=== PATIENT | female | born 2000 | race Caucasian/White ===

== ENCOUNTER 2024-02-14 16:39 | Observation (INO) ==
--- NOTE | 2024-02-14 16:53 | Emergency Department Note ---
Impression & Plan Elevated LFTs, Nausea & vomiting, Abdominal pain ED Provider Note CHIEF COMPLAINT: Hepatitis HISTORY OF PRESENTING ILLNESS: This 23-year-old female patient presents to the emergency department for evaluation of hepatitis. The patient states that she was seen at [facility] urgent care yesterday and was diagnosed with jaundice. She had blood work done yesterday and was called back today saying that she had acute hepatitis and to come to the ER. The patient states that she has been having yellowing of her eyes, abdominal pain, vomiting, sore throat, and nausea for the past week. However, those symptoms have started to improve. She did not have any fevers. Currently she is having fatigue and mild GI upset. No previous history of mono. No longer having a sore throat and she is able to swallow without pain. Has only been able to eat and drink since last night b/c of the abdominal pain. Has been having more frequent urination recently as well. She had some decreased BMs when she wasn't able to eat and drink, but now her bowels are moving better. Stools were more pale in color, but no white per patient. Denies chest pain or SOB. She has been having a lot of heartburn recently. She took Tums with improvement of her symptoms. Denies hematochezia, melena, hematuria, hemoptysis, or hematemesis. She has been having intermittent episodes of abdominal pain, nausea, and vomiting over the past year. She has not had and EGD, Colonoscopy, or CT scans done for her symptoms. Denies abdominal surgeries. Childhood immunizations are up to date. She was in [place] in Mar 2023 shortly before the symptoms started. No other travel history. She has not been taking Tylenol recently. Denies excessive alcohol use. Denies any recent antibiotics. No new medications or OTC supplements per patient. Upon review of the patient's medical record, she was seen by [facility] yesterday and outpatient labs were ordered. Her CBC and urinalysis were normal. However, her total bilirubin was 2.1, AST 74, ALT 374, and alk phos 124. REVIEW OF SYSTEMS: See HPI for pertinent positives and pertinent negatives. ALLERGIES: NKDA MEDICATIONS: Mirena PAST MEDICAL HISTORY: Denies pertinent past medical or pertinent past surgical history PHYSICAL EXAM: VITALS: Vitals are noted on the nurse's note and reviewed by myself. GENERAL: Non toxic, no acute distress, non-diaphoretic. SKIN: No jaundice noted to the skin. No abnormal rashes or skin lesions noted. Capillary refill <2 sec. EYES: PERRLA. EOMI. Conjunctivae without injection. Sclerae without icterus. NOSE: Patent without discharge. MOUTH: Mucous membranes moist. Uvula midline. Airway patent. No palatal jaundice. Pharynx without erythema, edema, or exudate. NECK: Supple without nuchal rigidity. No lymphadenopathy noted. HEART: Regular rate and rhythm without murmurs gallops or rubs. LUNGS: Clear to auscultation bilaterally without wheezes, rales or rhonchi. No retractions or accessory muscle use. ABDOMEN: Positive bowel sounds x 4. Normal tympanic percussion. Soft, minimal upper abdominal tenderness, but no focal RUQ tenderness. No obvious masses or organomegaly. Wynn sign negative. No guarding or rebound tenderness. No focal RLQ or LLQ tenderness. MUSCULOSKELETAL: No gross musculoskeletal defects. NEURO: Patient was alert and oriented. No focal neurological deficits. DIFFERENTIAL DIAGNOSIS: Differential diagnosis includes hepatitis, pancreatitis, cholecystitis, cholelithiasis, appendicitis, kidney stone, pyelonephritis, UTI, gastritis, gastroenteritis, mesenteric adenitis, obstruction, constipation, hernia, abdominal abscess, perforation, diverticulitis, IBD, ischemic colitis, abdominal aortic aneurysm, , ectopic , ovarian cyst, ovarian torsion, acute salpingitis, or others. ED COURSE AND MEDICAL DECISION MAKING: MEDICATIONS GIVEN: The patient declined any medication for her symptoms while in the ER. There is currently a severe shortage of IV fluids. The patient's condition was assessed and did not meet hospital criteria for IV fluid administration at this time. Therefore, IV fluids were not given. INTERPRETATION OF LABS: I interpreted the labs with full lab results as below in the lab section of this note. Pertinent lab results discussed in the MDM section below. INTERPRETATION OF IMAGING: Imaging studies were interpreted by myself and read by radiology as per the imaging section of this note. CT scan of the abdomen pelvis with IV contrast showed multiple stones in the gallbladder, but no ductal dilation, evidence for choledocholithiasis, or evidence for cholecystitis. No other acute abnormalities. IUD is in good position. EXTERNAL RECORDS REVIEWED: I reviewed the urgent care office visit note as well as the outpatient laboratory studies obtained yesterday. CONSULTATIONS: Dr. Huggins of GI. On-call hospitalist. [facility] SUMMARY: I examined the patient. The patient has been having abdominal pain, nausea, vomiting, sore throat, and yellowing of her eyes for the past week. However, her symptoms started to improve last evening. The patient was seen at [facility] yesterday and had outpatient labs done that showed elevated LFTs. She was referred to the ER for further evaluation. In addition to the URI symptoms, the patient was in [place] in March 2023. No previous history of jaundice. She has been having intermittent episodes of abdominal pain, nausea, vomiting, and acid reflux over the past year. She has not had workup for the symptoms yet. An IV lock was placed and labs were drawn. The patient declined any medication for her symptoms while in the emergency department and due to a severe shortage of IV fluids, IV fluids were held as above. CBC was normal with a white blood cell count of 5.56, hemoglobin 14.7, and platelet count 273. INR was normal at 1.0. Total bilirubin decreased from 2.1 yesterday to 1.8 today with a direct bilirubin of 0.4. Since this is mostly an indirect elevation of bilirubin, it is likely secondary to Gilbert's. However, the patient's AST increased from 74 yesterday to 239 today. ALT increased from 374 yesterday to 569 today. Alk phos stable at 123 today compared to 124 yesterday. CMP otherwise normal. Lipase normal. Serum hCG negative. Urinalysis with trace blood, 1+ leukocyte Estrace, 3-5 red blood cells, 3-5 epithelial cells, and 1+ bacteria. Lyme disease screen negative. Anaplasma and Babesia smear negative with DNA PCR still pending. Monoscreen negative. EBV and CMV titers are still pending. Acute hepatitis panel still pending. CT scan of the abdomen pelvis with IV contrast showed multiple stones in the gallbladder, but no ductal dilation, evidence for choledocholithiasis, or evidence for cholecystitis. No other acute abnormalities. IUD is in good position. The patient is afebrile, has no leukocytosis, and has no right upper quadrant tenderness on exam. Therefore, right upper quadrant ultrasound was deferred in the ER at this time. I spoke with Dr. Huggins of GI due to the significant jump in her LFTs from yesterday without obvious cause. He stated that if the patient had significant vomiting/signs of dehydration, or an abnormal INR, more emergent treatment were needed. Otherwise, the patient would need to have close monitoring of her LFTs and her symptoms. I had a meaningful discussion about this patient with Dr. Ross who agrees with my assessment and the treatment plan. The patient does not have a family doctor and would have difficulty having close outpatient follow-up and monitoring of her LFTs. Therefore, it was felt the patient would benefit from inpatient admission for further monitoring and treatment of her symptoms. I spoke with the on-call hospitalist who agreed to admit the patient for further evaluation and treatment. Please refer to their dictation for further details. The patient denied any [id number] medications or supplements upon my questioning, but after speaking with the hospitalist, she remembered she had been taking Ashwaganda supplements. This could be a cause of her elevated LFTs. Urine drug screen, acetaminophen level, and alcohol level obtained by the hospitalist were negative. Still waiting on the results of the EBV and CMV titers as well as the acute hepatitis panel. The patient's care was transferred to the hospitalist service in stable condition. DIAGNOSIS: Elevated LFTs Recent nausea, vomiting, sore throat, and abdominal pain Past Med/Surg History Problem List (Updated 02/14/24 @ 22:34 by Maida Willard PA-C) Abdominal pain (Acute) Nausea & vomiting (Acute) Elevated LFTs (Acute) Medical History (Updated 02/14/24 @ 22:34 by Maida Willard PA-C) Vitamin D deficiency Social History Smoking Status: Never smoker Do You Dip or Chew Tobacco: No; Hx Alcohol Use: Yes Alcohol type: hard liquor Hx Substance Use: No Preferred Language: Telugu Communication Ability: Effective Death Claim Examiner Required: No Beliefs That Will Affect Care: None Current Living Situation: Other Current Living Situation Comment: apartment with three other roommates Feels Safe at Home: Yes Safety Concerns: Feels Safe At This Time Assistive Devices: None Allergies Allergies Allergy/AdvReac Type Severity Reaction Status Date / Time No Known Allergies Allergy Verified 02/13/24 14:21 Home Meds Home Medications Medication Instructions Recorded Confirmed levonorgestrel 21 mcg/24 hr (up to intrauterine 02/13/24 02/13/24 8 years) 52 mg intrauterine device (Mirena) Results & Data (ED) Vital Signs Vital Signs - 24 hr 02/14/24 16:41 02/14/24 17:32 02/14/24 17:33 Temperature 36.9 C Temperature Source Temporal Artery Scan Pulse Rate 115 H 88 103 H Pulse Rate from SpO2 Sensor 101 H Respiratory Rate 18 20 Respiratory Effort / Characteristics Non-Labored Respiratory Depth Normal Blood Pressure 127/85 117/88 Blood Pressure Mean 99 97 Pulse Oximetry 98 98 Oxygen Delivery Method Room Air Room Air Sepsis Recent Fever Within 48 Hours No Sepsis New/Unexplained Change in Mental Status No Sepsis Action Taken by Nursing No Action Required 02/14/24 18:48 02/14/24 19:03 02/14/24 19:33 Temperature Temperature Source Pulse Rate 96 H 94 H 87 Pulse Rate from SpO2 Sensor 96 H 93 H 88 Respiratory Rate 16 14 16 Respiratory Effort / Characteristics Respiratory Depth Blood Pressure 106/84 117/84 106/74 Blood Pressure Mean 91 95 84 Pulse Oximetry 98 98 98 Oxygen Delivery Method Room Air Room Air Room Air Sepsis Recent Fever Within 48 Hours Sepsis New/Unexplained Change in Mental Status Sepsis Action Taken by Nursing Laboratory Data 02/14/24 16:59 02/14/24 16:59 Lab Results 02/14/24 02/14/24 Range/Units 16:55 16:59 WBC 5.56 (4.8-10.8) K/ul RBC 4.69 (4.20-5.40) M/uL Hgb 14.7 (12.0-16.0) g/dl Hct 43.8 (37.0-47.0) % MCV 93.4 (80.0-100.0) fL MCH 31.3 (25.0-34.0) pg MCHC 33.6 (32.0-36.0) g/dL RDW Std Deviation 42.5 (36.4-46.3) fL RDW Coeff of Albina 12.3 (11.5-14.5) % Plt Count 273 (130-400) K/uL MPV 9.9 (9.4-12.4) fL Immature Gran % (Auto) 0.4 % Neut % (Auto) 62.1 % Lymph % (Auto) 29.7 % [place] % (Auto) 5.6 % Eos % (Auto) 1.8 % Baso % (Auto) 0.4 % Neut # (Auto) 3.46 (1.40-6.50) K/uL Lymph # (Auto) 1.65 (1.20-3.40) K/uL [place] # (Auto) 0.31 (0.11-0.59) K/uL Eos # (Auto) 0.10 (0.00-0.50) K/uL Baso # (Auto) 0.02 (0.00-0.20) K/uL Immature Gran # (Auto) 0.02 (0.01-0.20) K/uL PT 10.5 (9.0-12.0) Seconds INR 1.0 (0.9-1.1) Sodium 139 (136-145) mmol/L Potassium 4.1 (3.5-5.1) mmol/L Chloride 104 (98-107) mmol/L Carbon Dioxide 29 (21-32) mmol/L Anion Gap 6 (3-11) BUN 14 (6-23) mg/dl Creatinine 0.62 (0.6-1.2) mg/dl Est Cr Clr Drug Dosing 127.0 ml/min eGFR 128.25 BUN/Creatinine Ratio 22.6 H (10-20) Glucose 93 (70-99(Fasting)) mg/dl Calcium 9.9 (8.6-10.3) mg/dl Total Bilirubin 1.8 H (0.2-1.0) mg/dl Direct Bilirubin 0.4 H (0-0.2) mg/dl AST 239 H (13-39) U/L ALT 569 H (7-52) U/L Alkaline Phosphatase 123 H (34-104) U/L Total Protein 8.6 H (6.0-8.3) gm/dl Albumin 5.0 (3.4-5.0) gm/dl Globulin 3.6 (2.5-4.0) gm/dl Albumin/Globulin Ratio 1.4 (0.9-2) Lipase 53 (11-82) U/L HCG, Qual Negative (Negative) Urine Color Yellow Urine Appearance Clear (Clear) Urine pH 7.0 (4.5-7.5) Ur Specific [place] 1.021 (1.000-1.030) Urine Protein Negative (Negative) Urine Glucose (UA) Negative (Negative) Urine Ketones Negative (Negative) Urine Blood Trace H (Negative) Urine Nitrite Negative (Negative) Urine Bilirubin Negative (Negative) Urine Urobilinogen Negative (Negative) Ur Leukocyte Esterase 1+ H (Negative) Urine WBC (Auto) 0-5 (0-5) /hpf Urine RBC (Auto) 3-5 H (0-2) /hpf U Hyaline Cast (Auto) 0-2 (0-2) /lpf U Epithel Cells (Auto) 3-5 H (0-2) /hpf Urine Bacteria (Auto) 1+ H (None Seen) Urine Opiates Screen Neg (Neg) Ur Methadone, Qual Neg (Neg) Urine Fentanyl Screen Neg (Neg) Urine Barbiturates Neg (Neg) Ur Phencyclidine (PCP) Neg (Neg) U Amphetamin/Meth Scrn Neg (Neg) MDMA (Ecstasy) Screen Neg (Neg) U Benzodiazepines Scrn Neg (Neg) Ur Cocaine Metabolite Neg (Neg) U Marijuana (THC) Screen Neg (Neg) Anaplasma Smear See Comment Babesia Smear See Comment Lyme Disease Screen Negative (Negative) Monoscreen Negative (Negative) Administered Medications Lactated Ringer's (Lr) 1,000 mls @ 80 mls/hr IV .[id number] SELINA Stop: 02/15/24 09:38 Last Admin: 02/14/24 21:51 Dose: 80 mls/hr Documented By: MJM Discontinued Medications Ioversol (Optiray 320 100ml) 94 ml IV ONCE ONE Stop: 02/14/24 17:50 Last Admin: 02/14/24 17:50 Dose: 94 ml Documented By: EDK Imaging Data Radiologist's Impression: Abdomen/Pelvis CT 02/14/24 17:07 EXAM: CT Abdomen and Pelvis With Intravenous Contrast INDICATION: Abdominal pain. Jaundice. Elevated liver functions. TECHNIQUE: Axial computed tomography images of the abdomen and pelvis with intravenous contrast. Sagittal and coronal reformatted images were created and reviewed. This CT exam was performed using one or more of the following dose reduction techniques: automated exposure control, adjustment of the mA and/or kV according to patient size, and/or use of iterative reconstruction technique. CONTRAST: 94ml of Optiray 320 was administered intravenously. COMPARISON: No relevant prior studies available. FINDINGS: Limitations: None. Lung bases: No abnormality noted. Pleural space: No visualized pleural effusion or pneumothorax. Heart: No abnormality noted. Mediastinum: No abnormality noted. ABDOMEN: Liver: No abnormality noted. Gallbladder and bile ducts: The gallbladder is collapsed and contains multiple stones. No biliary gas. No ductal dilatation or visible stone. Pancreas: Homogeneous enhancement. No mass, inflammation or ductal dilation. Spleen: No significant abnormality noted. Adrenals: No significant abnormality noted. Kidneys and ureters: Normal enhancement. No mass, hydronephrosis or visualized stone. Stomach and bowel: No distension or mucosal thickening. No inflammation noted. PELVIS: Appendix: Well seen and appears normal. Bladder: No filling defects to suggest mass or large stone. No inflammation. Reproductive: No abnormalities noted. ABDOMEN and PELVIS: Intraperitoneal space: No free air. No significant fluid collection. Bones/joints: No acute changes. Soft tissues: No significant abnormality noted. Vasculature: No abdominal aortic aneurysm. Lymph nodes: No pathologically enlarged lymph nodes. Tubes, lines and devices: Intrauterine contraceptive device in good position. IMPRESSION: Cholelithiasis. No ductal dilatation. ACT 112: Positive. There are findings on this exam that require communication between the performing entity and the patient following Patient Test Result Information Act ([place] ACT 112) guidelines. Electronically signed by Dilma Rincon 02-14-2024 6:24 PM Discharge Plan Visit Data Chief Complaint: Referred by Doctor Stated Complaint: HEPITITIS AND NEEDS TO BE SEEN BY ER ED Provider: Aldo Ross ED Midlevel Provider: Maida Willard Discharge Problem: Elevated LFTs, Nausea & vomiting, Abdominal pain Patient Disposition: Admitted As Inpatient Condition: Good Discharge Instructions Interventions: ED Discharge Assessment Last Done: 02/14/24 20:38 Discharge Problem: Nausea & vomiting Qualifiers: Vomiting type: unspecified Qualified Code(s): R11.2 - Nausea with vomiting, unspecified Abdominal pain Qualifiers: Abdominal location: generalized Qualified Code(s): R10.84 - Generalized abdominal pain
[2024-02-14 17:22] LABS: Appearance Urine Clear (Clear); Bacteria Urine Automated 1+ (None Seen); Bilirubin Urine Negative (Negative); Blood Urine Trace (Negative); Cast Urine Automated 0-2 /lpf (0-2); Color Urine Yellow; Glucose Urine UA Negative (Negative); Ketones Urine Negative (Negative); Leukocyte Esterase Urine 1+ (Negative); Nitrite Urine Negative (Negative); Protein Urine Negative (Negative); Specific Gravity Urine 1.021 (1.000-1.030); Urobilinogen Urine Negative (Negative); WBC Urine Automated 0-5 /hpf (0-5)
[2024-02-14 17:24] LABS: Basophils # (auto) 0.02 K/uL (0.00-0.20); Basophils % (auto) 0.4 %; Eosinophils % (auto) 1.8 %; Hematocrit (blood only) 43.8 % (37.0-47.0); Hemoglobin 14.7 g/dl (12.0-16.0); Immature Granulocytes # (auto) 0.02 K/uL (0.01-0.20); Immature Granulocytes % (auto) 0.4 %; Lymphocytes # (auto) 1.65 K/uL (1.20-3.40); Lymphocytes % (auto) 29.7 %; Mean Corpuscular Hemoglobin 31.3 pg (25.0-34.0); Mean Corpuscular Hgb Conc 33.6 g/dL (32.0-36.0); Mean Corpuscular Volume 93.4 fL (80.0-100.0); Mean Platelet Volume 9.9 fL (9.4-12.4); Monocytes # (auto) 0.31 K/uL (0.11-0.59); Monocytes % (auto) 5.6 %; Neutrophils # (auto) 3.46 K/uL (1.40-6.50); Neutrophils % (auto) 62.1 %; Platelet Count 273 K/uL (130-400); RDW Coefficient of Variation 12.3 % (11.5-14.5); RDW Standard Deviation 42.5 fL (36.4-46.3); Red Blood Count 4.69 M/uL (4.20-5.40); White Blood Count 5.56 K/ul (4.8-10.8)
[2024-02-14 17:35] LABS: Monotest Negative (Negative); Pregnancy Test, Serum Negative (Negative)
[2024-02-14 17:39] LABS: BUN Creatinine Ratio 22.6 (10-20); Calcium 9.9 mg/dl (8.6-10.3); Potassium 4.1 mmol/L (3.5-5.1)
[2024-02-14] MEDS: OPTIRAY 320 100ml IV ONE (17:50)
[2024-02-14 17:59] LABS: Albumin Globulin Ratio 1.4 (0.9-2); Bilirubin Direct 0.4 mg/dl (0-0.2); Bilirubin,Total 1.8 mg/dl (0.2-1.0); Globulin 3.6 gm/dl (2.5-4.0); Total Protein 8.6 gm/dl (6.0-8.3)
--- NOTE | 2024-02-14 18:25 | CT Scan Report ---
EXAM: CT Abdomen and Pelvis With Intravenous Contrast INDICATION: Abdominal pain. Jaundice. Elevated liver functions. TECHNIQUE: Axial computed tomography images of the abdomen and pelvis with intravenous contrast. Sagittal and coronal reformatted images were created and reviewed. This CT exam was performed using one or more of the following dose reduction techniques: automated exposure control, adjustment of the mA and/or kV according to patient size, and/or use of iterative reconstruction technique. CONTRAST: 94ml of Optiray 320 was administered intravenously. COMPARISON: No relevant prior studies available. FINDINGS: Limitations: None. Lung bases: No abnormality noted. Pleural space: No visualized pleural effusion or pneumothorax. Heart: No abnormality noted. Mediastinum: No abnormality noted. ABDOMEN: Liver: No abnormality noted. Gallbladder and bile ducts: The gallbladder is collapsed and contains multiple stones. No biliary gas. No ductal dilatation or visible stone. Pancreas: Homogeneous enhancement. No mass, inflammation or ductal dilation. Spleen: No significant abnormality noted. Adrenals: No significant abnormality noted. Kidneys and ureters: Normal enhancement. No mass, hydronephrosis or visualized stone. Stomach and bowel: No distension or mucosal thickening. No inflammation noted. PELVIS: Appendix: Well seen and appears normal. Bladder: No filling defects to suggest mass or large stone. No inflammation. Reproductive: No abnormalities noted. ABDOMEN and PELVIS: Intraperitoneal space: No free air. No significant fluid collection. Bones/joints: No acute changes. Soft tissues: No significant abnormality noted. Vasculature: No abdominal aortic aneurysm. Lymph nodes: No pathologically enlarged lymph nodes. Tubes, lines and devices: Intrauterine contraceptive device in good position. IMPRESSION: Cholelithiasis. No ductal dilatation. ACT 112: Positive. There are findings on this exam that require communication between the performing entity and the patient following Patient Test Result Information Act ([place] ACT 112) guidelines. Electronically signed by Dilma Rincon 02-14-2024 6:24 PM
[2024-02-14 18:57] LABS: Prothrombin Time 10.5 Seconds (9.0-12.0)
[2024-02-14 20:15] LABS: Amphetamines+Metham, Urine Neg (Neg); Barbiturates, Urine Neg (Neg); Benzodiazepine, Urine Neg (Neg); Cocaine, Urine Neg (Neg); Fentanyl, Urine Neg (Neg); MDMA (Ecstacy), Urine Neg (Neg); Marijuana, Urine Neg (Neg); Methadone, Urine Neg (Neg); Opiate, Urine Neg (Neg); Phencyclidine, Urine Neg (Neg)
--- NOTE | 2024-02-14 21:27 | History & Physical Report ---
Date of Service February 14, 2024 Assessment & Plan (1) Elevated LFTs: (2) Nausea & vomiting: (3) Abdominal pain: Plan Abnormal worsening LFTs/abdominal pain/nausea without vomiting- Overall worsening of LFTs from 02/12 to 02/13 Total bilirubin-2.1 to 1.8 Direct bilirubin-0.4 AST-74 to 239 ALT-374 to 569 Alkaline phosphatase-124 to 123 INR is normal, and creatinine is normal CT scan of the abdomen and pelvis shows cholelithiasis UDS: Negative, including acetaminophen level less than 3, and alcohol less than 10 Monoscreen negative Anaplasmosis and babesiosis smears negative, with antibodies pending Lyme test negative EBV, CMV and acute hepatitis panel all pending Ultrasound right upper quadrant is ordered Upon review of medication list, patient is not on any active oral medications, but is on levonorgestrel intrauterine device OTC medications include use of Ashwagandha for 1 to 2 weeks, prior to development of symptoms. This medication has a potential for hepatotoxicity. NPO Repeat laboratories in the a.m. and follow results of other pending labs LR at 80 mL/h x 1 L Consult gastroenterology Admission and Anticipated Discharge Date Admission Date: February 14, 2024 History of Present Illness Chief Complaint: Patient had noted yellowing of her eyes over the past week, along with fatigue and GI upset, for which she was seen at acute care yesterday. She had laboratories performed, and received a call from the acute care office that her liver tests were abnormal, and that she should report to the ED for further ass essment. Primary Care Provider: CHRISSIE GARCIA The patient is a 23-year-old female with no significant past medical history, who presents to the emergency department as noted above. She had repeat liver test performed in the emergency department, which showed progression of liver test abnormalities, it was then referred for evaluation for admission to the hospital. Allergies Allergy/AdvReac Type Severity Reaction Status Date / Time No Known Allergies Allergy Verified 02/13/24 14:21 Home Medications Medication Instructions Recorded Confirmed Type levonorgestrel 21 mcg/24 hr (up to intrauterine 02/13/24 02/13/24 History 8 years) 52 mg intrauterine device (Mirena) Past Med/Surg History Problem List (Updated 02/14/24 @ 22:34 by Maida Willard PA-C) Abdominal pain (Acute) Nausea & vomiting (Acute) Elevated LFTs (Acute) Medical History (Updated 02/14/24 @ 22:34 by Maida Willard PA-C) Vitamin D deficiency Social History Smoking Status: Never smoker Preferred Language: Cuban Feels Safe at Home: Yes Review of Systems Review of Systems: The patient denies chest pain, palpitations, shortness of breath, dyspnea on exertion, cough, lower extremity swelling, fevers, chills, sweats, nausea, vomiting, diarrhea, constipation blood in urine or stool, dysuria, urinary frequency or urgency, lightheadedness, dizziness, headache, memory loss, loss of consciousness, rash, abnormal bruising or bleeding, imbalance, focal weakness, numbness or tingling in arms or legs, back or neck pain, or night sweats. The review of systems is otherwise negative other than for that already noted above, and at least 10 systems have been reviewed. Physical Exam Physical Exam: The patient is awake, alert and oriented 3, well developed and well nourished, normocephalic and atraumatic, lying in bed and in no acute distress. HEENT--PERRL, EOMI, mucous membranes, conjunctiva mildly icteric, and oropharynx normal. Neck--supple. No JVD. No bruits. Thyroid normal, trachea midline, no adenopathy. Heart--normal S1 and S2. No murmurs, rubs or gallops. Lungs--clear bilaterally, no respiratory distress, no accessory muscle use. Abdomen--normal bowel sounds and soft. Nontender. Nondistended, no hernias or masses, no organomegaly. Extremities--no cyanosis or clubbing. No edema. There are good distal pulses b/l. Dermatologic--normal turgor, mildly jaundiced Neurologic--cranial nerves II through XII grossly intact. Rheumatologic--normal range of motion. Psychiatric--normal affect. Results & Data Results & Data Vital Signs (Past 12 Hours) Vital Signs Temp Pulse Resp BP Pulse Ox O2 Del Method 02/14/24 20:27 81 16 108/77 98 02/14/24 19:33 87 16 106/74 98 Room Air 02/14/24 19:03 94 H 14 117/84 98 Room Air 02/14/24 18:48 96 H 16 106/84 98 Room Air 02/14/24 17:33 103 H 20 117/88 98 Room Air 02/14/24 17:32 88 02/14/24 16:41 36.9 C 115 H 18 127/85 98 Room Air Laboratory Results Laboratory Results WBC 5.56 K/ul (4.8-10.8) 02/14/24 16:59 RBC 4.69 M/uL (4.20-5.40) 02/14/24 16:59 Hgb 14.7 g/dl (12.0-16.0) 02/14/24 16:59 Hct 43.8 % (37.0-47.0) 02/14/24 16:59 MCV 93.4 fL (80.0-100.0) 02/14/24 16:59 MCH 31.3 pg (25.0-34.0) 02/14/24 16:59 MCHC 33.6 g/dL (32.0-36.0) 02/14/24 16:59 RDW Std Deviation 42.5 fL (36.4-46.3) 02/14/24 16:59 RDW Coeff of [place] 12.3 % (11.5-14.5) 02/14/24 16:59 Plt Count 273 K/uL (130-400) 02/14/24 16:59 MPV 9.9 fL (9.4-12.4) 02/14/24 16:59 Immature Gran % (Auto) 0.4 % 02/14/24 16:59 Neut % (Auto) 62.1 % 02/14/24 16:59 Lymph % (Auto) 29.7 % 02/14/24 16:59 [place] % (Auto) 5.6 % 02/14/24 16:59 Eos % (Auto) 1.8 % 02/14/24 16:59 Baso % (Auto) 0.4 % 02/14/24 16:59 Neut # (Auto) 3.46 K/uL (1.40-6.50) 02/14/24 16:59 Lymph # (Auto) 1.65 K/uL (1.20-3.40) 02/14/24 16:59 [place] # (Auto) 0.31 K/uL (0.11-0.59) 02/14/24 16:59 Eos # (Auto) 0.10 K/uL (0.00-0.50) 02/14/24 16:59 Baso # (Auto) 0.02 K/uL (0.00-0.20) 02/14/24 16:59 Immature Gran # (Auto) 0.02 K/uL (0.01-0.20) 02/14/24 16:59 PT 10.5 Seconds (9.0-12.0) 02/14/24 16:55 INR 1.0 (0.9-1.1) 02/14/24 16:55 Sodium 139 mmol/L (136-145) 02/14/24 16:59 Potassium 4.1 mmol/L (3.5-5.1) 02/14/24 16:59 Chloride 104 mmol/L (98-107) 02/14/24 16:59 Carbon Dioxide 29 mmol/L (21-32) 02/14/24 16:59 Anion Gap 6 (3-11) 02/14/24 16:59 BUN 14 mg/dl (6-23) 02/14/24 16:59 Creatinine 0.62 mg/dl (0.6-1.2) 02/14/24 16:59 Est Cr Clr Drug Dosing 127.0 ml/min 02/14/24 16:59 eGFR 128.25 02/14/24 16:59 BUN/Creatinine Ratio 22.6 (10-20) H 02/14/24 16:59 Glucose 93 mg/dl (70-99(Fasting)) 02/14/24 16:59 Calcium 9.9 mg/dl (8.6-10.3) 02/14/24 16:59 Total Bilirubin 1.8 mg/dl (0.2-1.0) H 02/14/24 16:59 Direct Bilirubin 0.4 mg/dl (0-0.2) H 02/14/24 16:59 AST 239 U/L (13-39) H 02/14/24 16:59 ALT 569 U/L (7-52) H 02/14/24 16:59 Alkaline Phosphatase 123 U/L (34-104) H 02/14/24 16:59 Total Protein 8.6 gm/dl (6.0-8.3) H 02/14/24 16:59 Albumin 5.0 gm/dl (3.4-5.0) 02/14/24 16:59 Globulin 3.6 gm/dl (2.5-4.0) 02/14/24 16:59 Albumin/Globulin Ratio 1.4 (0.9-2) 02/14/24 16:59 Lipase 53 U/L (11-82) 02/14/24 16:59 HCG, Qual Negative (Negative) 02/14/24 16:59 Urine Color Yellow 02/14/24 16:59 Urine Appearance Clear (Clear) 02/14/24 16:59 Urine pH 7.0 (4.5-7.5) 02/14/24 16:59 Ur Specific [place] 1.021 (1.000-1.030) 02/14/24 16:59 Urine Protein Negative (Negative) 02/14/24 16:59 Urine Glucose (UA) Negative (Negative) 02/14/24 16:59 Urine Ketones Negative (Negative) 02/14/24 16:59 Urine Blood Trace (Negative) H 02/14/24 16:59 Urine Nitrite Negative (Negative) 02/14/24 16:59 Urine Bilirubin Negative (Negative) 02/14/24 16:59 Urine Urobilinogen Negative (Negative) 02/14/24 16:59 Ur Leukocyte Esterase 1+ (Negative) H 02/14/24 16:59 Urine WBC (Auto) 0-5 /hpf (0-5) 02/14/24 16:59 Urine RBC (Auto) 3-5 /hpf (0-2) H 02/14/24 16:59 U Hyaline Cast (Auto) 0-2 /lpf (0-2) 02/14/24 16:59 U Epithel Cells (Auto) 3-5 /hpf (0-2) H 02/14/24 16:59 Urine Bacteria (Auto) 1+ (None Seen) H 02/14/24 16:59 Urine Opiates Screen Neg (Neg) 02/14/24 16:59 Ur Methadone, Qual Neg (Neg) 02/14/24 16:59 Urine Fentanyl Screen Neg (Neg) 02/14/24 16:59 Acetaminophen < 3 ug/ml (10-30) L 02/14/24 20:12 Urine Barbiturates Neg (Neg) 02/14/24 16:59 Ur Phencyclidine (PCP) Neg (Neg) 02/14/24 16:59 U Amphetamin/Meth Scrn Neg (Neg) 02/14/24 16:59 MDMA (Ecstasy) Screen Neg (Neg) 02/14/24 16:59 U Benzodiazepines Scrn Neg (Neg) 02/14/24 16:59 Ur Cocaine Metabolite Neg (Neg) 02/14/24 16:59 U Marijuana (THC) Screen Neg (Neg) 02/14/24 16:59 Ethyl Alcohol mg/dL < 10.0 mg/dl (<10.0) 02/14/24 20:12 Anaplasma Smear See Comment 02/14/24 16:59 Babesia Smear See Comment 02/14/24 16:59 Lyme Disease Screen Negative (Negative) 02/14/24 16:59 Monoscreen Negative (Negative) 02/14/24 16:59 Impressions Abdomen/Pelvis CT 02/14/24 17:07 EXAM: CT Abdomen and Pelvis With Intravenous Contrast INDICATION: Abdominal pain. Jaundice. Elevated liver functions. TECHNIQUE: Axial computed tomography images of the abdomen and pelvis with intravenous contrast. Sagittal and coronal reformatted images were created and reviewed. This CT exam was performed using one or more of the following dose reduction techniques: automated exposure control, adjustment of the mA and/or kV according to patient size, and/or use of iterative reconstruction technique. CONTRAST: 94ml of Optiray 320 was administered intravenously. COMPARISON: No relevant prior studies available. FINDINGS: Limitations: None. Lung bases: No abnormality noted. Pleural space: No visualized pleural effusion or pneumothorax. Heart: No abnormality noted. Mediastinum: No abnormality noted. ABDOMEN: Liver: No abnormality noted. Gallbladder and bile ducts: The gallbladder is collapsed and contains multiple stones. No biliary gas. No ductal dilatation or visible stone. Pancreas: Homogeneous enhancement. No mass, inflammation or ductal dilation. Spleen: No significant abnormality noted. Adrenals: No significant abnormality noted. Kidneys and ureters: Normal enhancement. No mass, hydronephrosis or visualized stone. Stomach and bowel: No distension or mucosal thickening. No inflammation noted. PELVIS: Appendix: Well seen and appears normal. Bladder: No filling defects to suggest mass or large stone. No inflammation. Reproductive: No abnormalities noted. ABDOMEN and PELVIS: Intraperitoneal space: No free air. No significant fluid collection. Bones/joints: No acute changes. Soft tissues: No significant abnormality noted. Vasculature: No abdominal aortic aneurysm. Lymph nodes: No pathologically enlarged lymph nodes. Tubes, lines and devices: Intrauterine contraceptive device in good position. IMPRESSION: Cholelithiasis. No ductal dilatation. ACT 112: Positive. There are findings on this exam that require communication between the performing entity and the patient following Patient Test Result Information Act ([place] ACT 112) guidelines. Electronically signed by Dilma Rincon 02-14-2024 6:24 PM Code Status & VTE Plan Code Status Full code VTE Prophylaxis Plan VTE Prophylaxis will be ordered: Yes PG Care Time/CCT Total # of Minutes Spent Total Time Spent with Patient: Total time spent is greater than 50% in coordination of care (as documented) at patient's floor/unit and/or counseling patient: Coding Level of Care Code 80800 INT INP/OBS CARE 2/55MIN Diagnoses Elevated LFTs R79.89 Nausea & vomiting R11.2 Vomiting type: unspecified Abdominal pain R10.84 Abdominal location: generalized (2) Nausea & vomiting Vomiting type: unspecified Qualified Code(s): R11.2 - Nausea with vomiting, unspecified (3) Abdominal pain Abdominal location: generalized Qualified Code(s): R10.84 - Generalized abdominal pain
[2024-02-14] MEDS: LACTATED RINGER'S 1,000 ML IV SCH (21:51)
--- NOTE | 2024-02-15 01:13 | Gastrointestinal Consultation ---
Date of Consultation February 15, 2024 Assessment & Plan (1) Elevated LFTs: Her bilirubin is consistent with underlying Gilbert's syndrome and we discussed this. However, this would obviously not account for her other abnormal LFTs. Given her presentation and her imaging with a contracted GB filled with stones, I am suspicious of this being a causative factor. Hepatitis profiles are pending. Rec: HIDA scan Check hepatitis panels already ordered Trend LFTs. History of Present Illness Reason for Consultation: Abnormal LFTs Requesting Physician: Sudhakar Gonzalez Attending Physician: Sudhakar Gonzalez MD History of Present Illness 23 yo HF had symptoms of N/V and abdominal pain and was seen at an urgent care facility. Blood work was drawn and when they received the results they contacted her and told her to come to the hospital because she had "acute hepatitis." She is actually feeling improved. Allergies Allergy/AdvReac Type Severity Reaction Status Date / Time No Known Allergies Allergy Verified 02/13/24 14:21 Home Medications Medication Instructions Recorded Confirmed Type levonorgestrel 21 mcg/24 hr (up to intrauterine 02/13/24 02/13/24 History 8 years) 52 mg intrauterine device (Mirena) Patient History Medical History (Updated 02/14/24 @ 22:34 by Maida Willard PA-C) Vitamin D deficiency Social History (Updated 02/15/24 @ 01:11 EST by Axel Huggins MD) Smoking Status: Never smoker Do You Dip or Chew Tobacco: No; Hx Alcohol Use: Yes (Occasional use) Alcohol type: hard liquor Hx Substance Use: No Preferred Language: Kyrgyz Communication Ability: Effective Case Repairer Required: No Beliefs That Will Affect Care: None Current Living Situation: Other Current Living Situation Comment: apartment with three other roommates Feels Safe at Home: Yes Assistive Devices: None Review of Systems Review of Systems: Negative except for HPI and below. Constitutional: She denies any ill contacts, recent travel or spoiled food ingestion. Physical Exam Physical Exam: WD WN HF NAD Constitutional: Afebrile VSS Eyes: Sclera anicteric Conjunctiva not pale ENMT: No sublingual icterus Respiratory: Clear Cardiovascular: Reg Gastrointestinal (Abdomen): NL BS, soft, nontender No organomegaly Musculoskeletal: Neg edema Neurologic: A/O Results & Data Vital Signs (Past 12 Hours) Vital Signs Temp Pulse Pulse Resp BP BP Pulse Ox 02/14/24 21:10 36.7 C 82 18 119/76 97 02/14/24 20:27 81 16 108/77 98 02/14/24 19:33 87 16 106/74 98 02/14/24 19:03 94 H 14 117/84 98 02/14/24 18:48 96 H 16 106/84 98 02/14/24 17:33 103 H 20 117/88 98 02/14/24 17:32 88 02/14/24 16:41 36.9 C 115 H 18 127/85 98 O2 Del Method 02/14/24 21:10 Room Air 02/14/24 20:27 02/14/24 19:33 Room Air 02/14/24 19:03 Room Air 02/14/24 18:48 Room Air 02/14/24 17:33 Room Air 02/14/24 17:32 02/14/24 16:41 Room Air PG Care Time/CCT Total # of Minutes Spent Total Time Spent with Patient: Total time spent is greater than 50% in coordination of care (as documented) at patient's floor/unit and/or counseling patient: Coding Level of Care Code 30299 IN/OBS CONSULT LVL 4,60M Diagnoses Elevated LFTs R79.89
[2024-02-15] MEDS ORDERED: INFLUENZA VACC TS2024-25(6m+)/PF (IIV3) 0.5mL Syr IM ONE (08:00)
[2024-02-15 08:27] LABS: Basophils # (auto) 0.02 K/uL (0.00-0.20); Basophils % (auto) 0.5 %; Eosinophils % (auto) 2.3 %; Hematocrit (blood only) 42.1 % (37.0-47.0); Hemoglobin 14.1 g/dl (12.0-16.0); Immature Granulocytes # (auto) 0.01 K/uL (0.01-0.20); Immature Granulocytes % (auto) 0.2 %; Lymphocytes # (auto) 1.61 K/uL (1.20-3.40); Lymphocytes % (auto) 36.6 %; Mean Corpuscular Hemoglobin 30.9 pg (25.0-34.0); Mean Corpuscular Hgb Conc 33.5 g/dL (32.0-36.0); Mean Corpuscular Volume 92.1 fL (80.0-100.0); Mean Platelet Volume 10.3 fL (9.4-12.4); Monocytes # (auto) 0.26 K/uL (0.11-0.59); Monocytes % (auto) 5.9 %; Neutrophils % (auto) 54.5 %; Platelet Count 259 K/uL (130-400); RDW Coefficient of Variation 12.4 % (11.5-14.5); RDW Standard Deviation 41.9 fL (36.4-46.3); Red Blood Count 4.57 M/uL (4.20-5.40)
[2024-02-15 08:37] LABS: BUN Creatinine Ratio 17.6 (10-20); Calcium 9.8 mg/dl (8.6-10.3); Creatinine Clr Calc Pharmacy 115.8 ml/min
[2024-02-15 08:53] LABS: Partial Thromboplastin Ratio 1.1; Partial Thromboplastin Time 29 Seconds (21-31); Prothrombin Time 10.6 Seconds (9.0-12.0)
[2024-02-15 08:56] LABS: Albumin Globulin Ratio 1.4 (0.9-2); Albumin Level 4.5 gm/dl (3.4-5.0); Bilirubin,Total 2.3 mg/dl (0.2-1.0); Globulin 3.3 gm/dl (2.5-4.0); Total Protein 7.8 gm/dl (6.0-8.3)
--- NOTE | 2024-02-15 11:16 | Hospitalist Progress Note ---
Date of Service February 15, 2024 Assessment & Plan (1) Transaminitis: (2) Abdominal pain: (3) Nausea & vomiting: Plan Transaminitis, abdominal pain, nausea, vomiting - LFTs: AST 260 ALT 628 - Today pain improved 0-1/10, no nausea/vomiting - hep panel, CMV, EBV, HIV pending - CT AP: normal liver, collapsed gallbladder with stones - Abdominal U/S pending - HIDA scan pending - abnormal UA, culture pending Admission and Anticipated Discharge Date Admission Date: February 14, 2024 Supervising Physician Co-Signing Physician Notes Attending attestation Pt seen and examined in concert with Dr. Lou. In agreement with the documented findings as noted in the resident documentation with any exceptions or additions as noted here. Resting in bed without complaint. On examination, S1/S2 nl RRR no MCG. CTAB. Abd NT/ND BS+ve. Very mild scleral icterus visible bilaterally. Transaminitis with hyperbilirubinemia - GI consult - CT imaging, CMP and CBC as noted - HIDA scan pending for further evaluation of underlying gallbladder pathology vs. further evaluation for underlying occult cause. Else see resident documentation as noted. Brendon Cao is a 23 y/o F with a past medical history of Gilbert Syndrome who arrived at urgent care with scleral icterus, abdominal pain, nausea, and vomiting. Labs revealed elevated LFTs and she was recommended to go to the ED. Patient had imaging done and was admitted inpatient to determine the cause of elevated LFTs. Patient endorses that she had a GI bug a week ago causing nausea, vomiting, abdominal, pain fevers and sensitivity to heat and cold. Today patient is in much less pain and reports no nausea or emesis, however her LFTs continue to rise. Patient reports no toxic ingestion and no new medications other than a week trial of ashwagandha in October. Patient reports no illicit drug use, and has one tattoo on her forearm from 3 years prior. Patient does explain that in the past she has had multiple episodes similar to this one where she has abdominal pain, nausea, and vomiting that resolves over a week, possibly her gallbladder passing stones and causing biliary colic. Patient is in no acute distress and is NPO status. Physical Exam Physical Exam: General: patient resting comfortably, NAD, non-toxic in appearance, answers questions appropriately. Skin: warm, dry, intact HEENT: NC/AT, anicteric sclera, conjunctiva without injection, moist mucus membranes. Heart: +S1/S2, regular, no m/r/g Lungs: equal air entry bilaterally, no rales/rhonchi/wheezes Abd: +BS, soft, NT/ND Ext: warm, no clubbing/cyanosis or edema, Chapis's neg. Neuro: nonfocal, speech intact, no facial droop, moving all extremities. Results & Data Results & Data Vital Signs (Past 12 Hours) Vital Signs Temp Pulse Resp BP Pulse Ox O2 Del Method 02/15/24 08:02 36.7 C 97 H 16 103/66 97 Room Air Resident Activity Tracking Resident Involvement: Resident Care Provided Care Provided: Adult Hospital Medicine (2) Abdominal pain Abdominal location: generalized Qualified Code(s): R10.84 - Generalized abdominal pain (3) Nausea & vomiting Vomiting type: unspecified Qualified Code(s): R11.2 - Nausea with vomiting, unspecified
[2024-02-15] MEDS: IBUPROFEN 600 MG TAB PO STA (15:05)
[2024-02-15] MEDS ORDERED: Nursing to Pharmacy Communication SCH (15:15)
[2024-02-15] MEDS: ONDANSETRON INJ 2 MG/ML 2 ML VIAL IV PRN (17:03)
[2024-02-15 17:52] LABS: BUN Creatinine Ratio 17.4 (10-20); Calcium 9.6 mg/dl (8.6-10.3); Creatinine Clr Calc Pharmacy 114.1 ml/min; Potassium 3.7 mmol/L (3.5-5.1)
[2024-02-15 18:15] LABS: Albumin Globulin Ratio 1.4 (0.9-2); Albumin Level 4.5 gm/dl (3.4-5.0); Bilirubin,Total 2.1 mg/dl (0.2-1.0); Globulin 3.2 gm/dl (2.5-4.0); Total Protein 7.7 gm/dl (6.0-8.3)
[2024-02-16 06:01] LABS: Basophils # (auto) 0.01 K/uL (0.00-0.20); Basophils % (auto) 0.2 %; Eosinophils # (auto) 0.14 K/uL (0.00-0.50); Eosinophils % (auto) 2.7 %; Hematocrit (blood only) 40.5 % (37.0-47.0); Hemoglobin 13.4 g/dl (12.0-16.0); Immature Granulocytes # (auto) 0.02 K/uL (0.01-0.20); Immature Granulocytes % (auto) 0.4 %; Lymphocytes # (auto) 1.98 K/uL (1.20-3.40); Lymphocytes % (auto) 37.6 %; Mean Corpuscular Hemoglobin 30.6 pg (25.0-34.0); Mean Corpuscular Hgb Conc 33.1 g/dL (32.0-36.0); Mean Corpuscular Volume 92.5 fL (80.0-100.0); Mean Platelet Volume 10.1 fL (9.4-12.4); Monocytes # (auto) 0.38 K/uL (0.11-0.59); Monocytes % (auto) 7.2 %; Neutrophils # (auto) 2.73 K/uL (1.40-6.50); Neutrophils % (auto) 51.9 %; Platelet Count 253 K/uL (130-400); RDW Coefficient of Variation 12.1 % (11.5-14.5); RDW Standard Deviation 41.4 fL (36.4-46.3); Red Blood Count 4.38 M/uL (4.20-5.40); White Blood Count 5.26 K/ul (4.8-10.8)
[2024-02-16 06:18] LABS: Albumin Globulin Ratio 1.5 (0.9-2); Albumin Level 4.4 gm/dl (3.4-5.0); BUN Creatinine Ratio 23.3 (10-20); Bilirubin,Total 2.4 mg/dl (0.2-1.0); Calcium 9.6 mg/dl (8.6-10.3); Creatinine Clr Calc Pharmacy 107.9 ml/min; Potassium 4.1 mmol/L (3.5-5.1); Total Protein 7.4 gm/dl (6.0-8.3)
[2024-02-16 06:24] LABS: Partial Thromboplastin Ratio 1.1; Partial Thromboplastin Time 29 Seconds (21-31); Prothrombin Time 10.9 Seconds (9.0-12.0)
[2024-02-16 07:25] VITALS: RESP 16
[2024-02-16 09:17] LABS: Hep B Surface Ag with confirm Negative (Negative)
[2024-02-16 09:22] LABS: Hep C Ab Rflx HepCQuant RNA Negative (Negative)
--- NOTE | 2024-02-16 11:57 | Communication Note ---
Date of Service: February 16, 2024 Patient off floor getting her HIDA scan. will await results of this. Also will await results of pending liver labs.
[2024-02-16] MEDS: SODIUM CHLORIDE 0.9% IV ONE (12:09)
[2024-02-16] MEDS: SINCALIDE IV ONE (12:09)
--- NOTE | 2024-02-16 15:38 | Gastroenterology Progress Note ---
<Statement entered by Axel Huggins MD - 02/16/24 15:40> Patient seen and examined. Case discussed with Selin JAY. Transaminases marginally improving. ALP nl. Bili still c/w Gilbert's. Await results of HIDA - if + then surgical consult and if negative OP f/u awaiting results of liver disease work up. Discussed with patient as well. Axel Huggins MD Date of Service February 16, 2024 Assessment & Plan (1) Transaminitis: (2) Abdominal pain: Plan - await the results of today's hida scan. - trend LFTs. Admission and Anticipated Discharge Date Admission Date: February 14, 2024 Subjective Patient is s/p HIDA scan. results are pending. she does report that she had nausea and epigastric pain with the test. she is questioning trial of advancing diet. 02/15 T bili 2.4, ALT 571, AST 200, Alk phos 97 Review of Systems Review of Systems: All systems reviewed & are unremarkable except as noted in HPI & below Physical Exam Constitutional: WD/WN, vitals as above Respiratory: normal respiratory effort, lungs clear to auscultation Cardiovascular: Rate/Rhythm: regular rate and regular rhythm Gastrointestinal (Abdomen): epigastric tenderness to palpation, no guarding, soft, normal bowel sounds. Psychiatric: Orientation: alert and oriented x 3 Affect: euthymic affect Results & Data Results & Data Vital Signs (Past 12 Hours) Vital Signs Temp Pulse Resp BP Pulse Ox O2 Del Method 02/16/24 08:45 87 97 Room Air 02/16/24 07:24 98.1 F 115 H 16 110/67 98 Room Air Coding Level of Care Code 30600 SUB INP/OBS CARE /25MIN Diagnoses Transaminitis R74.01 Abdominal pain R10.84 Abdominal location: generalized (2) Abdominal pain Abdominal location: generalized Qualified Code(s): R10.84 - Generalized abdominal pain
--- NOTE | 2024-02-16 17:09 | Hospitalist Progress Note ---
Date of Service February 16, 2024 Assessment & Plan (1) Transaminitis: (2) Abdominal pain: (3) Nausea & vomiting: Plan Transaminitis, abdominal pain, nausea, vomiting - LFTs: AST 260 ALT 628 - Today pain improved 0-1/10, no nausea/vomiting - hep panel, CMV, EBV, HIV pending - CT AP: normal liver, collapsed gallbladder with stones - Abdominal U/S read pending - HIDA scan read pending - Abnormal UA, culture pending Admission and Anticipated Discharge Date Admission Date: February 14, 2024 Supervising Physician Co-Signing Physician Notes I personally examined the patient and verified all daniels points of history and exam, discussed case, and agree with decision making with Dr Lou feeling ok now. extensive review of acute HPI as well as abdominal pain hx over last ~10 months or so vitals noted nad heent nc at mmm breathing unlabored no accessory muscles. mild epigastric tenderness at worst, fairly benign exam. no noted trigger points of significance either abdominal pain - suspect acute viral, superimposed on chronic ?biliary vs gastritis. acute viral transaminitis starting to improve. HIDA pending. otherwise as above Subjective Patient is s/p HIDA scan. results are pending. Patient was seen this morning without nausea or vomiting, does complain of mild epigastric pain 0-1/10. Patient will be taken off NPO status as per GI. Patient denies fever, chills, chest pain, SOB, headache. Physical Exam Physical Exam: General: patient resting comfortably, NAD, non-toxic in appearance, answers questions appropriately. Skin: warm, dry, intact HEENT: NC/AT, anicteric sclera, conjunctiva without injection, moist mucus membranes. Heart: +S1/S2, regular, no m/r/g Lungs: equal air entry bilaterally, no rales/rhonchi/wheezes Abd: +BS, soft, NT/ND Ext: warm, no clubbing/cyanosis or edema, Chapis's neg. Neuro: nonfocal, speech intact, no facial droop, moving all extremities. Results & Data Results & Data Vital Signs (Past 12 Hours) Vital Signs Temp Pulse Resp BP Pulse Ox O2 Del Method 02/16/24 15:54 36.8 C 94 H 16 102/69 98 Room Air 02/16/24 08:45 87 97 Room Air 02/16/24 07:24 36.7 C 115 H 16 110/67 98 Room Air Resident Activity Tracking Resident Involvement: Resident Care Provided Care Provided: Adult Hospital Medicine (2) Abdominal pain Abdominal location: generalized Qualified Code(s): R10.84 - Generalized abdominal pain (3) Nausea & vomiting Vomiting type: unspecified Qualified Code(s): R11.2 - Nausea with vomiting, unspecified
--- NOTE | 2024-02-16 19:11 | Billing Data ---
Date of Service February 16, 2024 Coding Level of Care Code 67827 SUB INP/OBS CARE
[2024-02-17 06:10] LABS: Basophils # (auto) 0.01 K/uL (0.00-0.20); Basophils % (auto) 0.2 %; Eosinophils # (auto) 0.13 K/uL (0.00-0.50); Eosinophils % (auto) 2.6 %; Hematocrit (blood only) 38.4 % (37.0-47.0); Hemoglobin 13.1 g/dl (12.0-16.0); Immature Granulocytes # (auto) 0.01 K/uL (0.01-0.20); Immature Granulocytes % (auto) 0.2 %; Lymphocytes # (auto) 2.02 K/uL (1.20-3.40); Lymphocytes % (auto) 40.9 %; Mean Corpuscular Hemoglobin 31.2 pg (25.0-34.0); Mean Corpuscular Hgb Conc 34.1 g/dL (32.0-36.0); Mean Corpuscular Volume 91.4 fL (80.0-100.0); Monocytes # (auto) 0.44 K/uL (0.11-0.59); Monocytes % (auto) 8.9 %; Neutrophils # (auto) 2.33 K/uL (1.40-6.50); Neutrophils % (auto) 47.2 %; Platelet Count 241 K/uL (130-400); RDW Coefficient of Variation 11.9 % (11.5-14.5); RDW Standard Deviation 39.9 fL (36.4-46.3); White Blood Count 4.94 K/ul (4.8-10.8)
[2024-02-17 06:23] LABS: Albumin Globulin Ratio 1.5 (0.9-2); Albumin Level 4.4 gm/dl (3.4-5.0); BUN Creatinine Ratio 18.3 (10-20); Bilirubin Direct 0.4 mg/dl (0-0.2); Bilirubin,Total 2.3 mg/dl (0.2-1.0); Calcium 9.5 mg/dl (8.6-10.3); Creatinine Clr Calc Pharmacy 110.9 ml/min; Globulin 2.9 gm/dl (2.5-4.0); Magnesium 1.9 mg/dl (1.7-2.4); Total Protein 7.3 gm/dl (6.0-8.3)
[2024-02-17 06:31] LABS: INR 1.1 (0.9-1.1); Partial Thromboplastin Time 28 Seconds (21-31); Prothrombin Time 11.4 Seconds (9.0-12.0)
--- NOTE | 2024-02-17 06:42 | Hospitalist Progress Note ---
Date of Service February 17, 2024 Assessment & Plan (1) Transaminitis: (2) Abdominal pain: (3) Nausea & vomiting: Plan Transaminitis, abdominal pain, nausea, vomiting - LFTs: AST 260 ALT 628 - Today pain improved 0-1/10, no nausea/vomiting - hep panel, CMV, EBV, HIV pending - CT AP: normal liver, collapsed gallbladder with stones - Abdominal U/S read pending - HIDA scan read pending - Abnormal UA, culture pending Admission and Anticipated Discharge Date Admission Date: February 16, 2024 Physical Exam Physical Exam: General: patient resting comfortably, NAD, non-toxic in appearance, answers questions appropriately. Skin: warm, dry, intact HEENT: NC/AT, anicteric sclera, conjunctiva without injection, moist mucus membranes. Heart: +S1/S2, regular, no m/r/g Lungs: equal air entry bilaterally, no rales/rhonchi/wheezes Abd: +BS, soft, NT/ND Ext: warm, no clubbing/cyanosis or edema, Chapis's neg. Neuro: nonfocal, speech intact, no facial droop, moving all extremities. Results & Data Results & Data Vital Signs (Past 12 Hours) Vital Signs Temp Pulse Resp BP Pulse Ox O2 Del Method 02/16/24 19:49 36.5 C 83 16 101/68 95 Room Air (2) Abdominal pain Abdominal location: generalized Qualified Code(s): R10.84 - Generalized abdominal pain (3) Nausea & vomiting Vomiting type: unspecified Qualified Code(s): R11.2 - Nausea with vomiting, unspecified
[2024-02-17 07:13] VITALS: PULSE 90
--- NOTE | 2024-02-17 10:24 | Gastroenterology Progress Note ---
<Statement entered by Axel Huggins MD - 02/17/24 13:33> Patient seen and examined. Case discussed with Selin JAY. Patient improved and LFTs are improving. Her HIDA finally came back and is WNL. OK from GI standpoint to discharge with OP f/u. IP GI Service will sign off. Axel Huggins MD Date of Service February 17, 2024 Assessment & Plan (1) Transaminitis: Plan Patient feeling better. LFTs are trending downward. - await read of hida scan. if abnormal, recommend surgical input. If normal, can follow up on pending liver labs as outpatient. Admission and Anticipated Discharge Date Admission Date: February 16, 2024 Subjective Patient is feeling better. no further abdominal pain. LFTs are starting to trend downward. HIDA scan reading is still pending. 02/17/24 T bili 2.3, d bili 0.4, AST 107, ALT 441, alk phos 89. Review of Systems Review of Systems: All systems reviewed & are unremarkable except as noted in HPI & below Physical Exam Constitutional: WD/WN, vitals as above Respiratory: normal respiratory effort, lungs clear to auscultation Cardiovascular: Rate/Rhythm: regular rate and regular rhythm Gastrointestinal (Abdomen): normal bowel sounds, soft, nontender, no hepatosplenomegaly Psychiatric: Orientation: alert and oriented x 3 Affect: euthymic affect Results & Data Results & Data Vital Signs (Past 12 Hours) Vital Signs Temp Pulse Resp BP Pulse Ox O2 Del Method 02/17/24 07:11 97.9 F 90 16 105/64 97 Room Air Coding Level of Care Code 80144 SUB INP/OBS CARE 25MIN Diagnoses Transaminitis R74.01
--- NOTE | 2024-02-17 13:16 | Nuclear Medicine Report ---
NM hepatobiliary EF CLINICAL HISTORY: 23 years-old Female with Abdominal pain and abnormal LFTs. GS on CT. TECHNIQUE: Following the intravenous administration of 5.4 mCi of technetium-99m Choletec, sequentia l abdominal images were obtained. In order to evaluate the contractile response of the gallbladder, 1.3 mcg of Kinevac was administered by slow intravenous infusion over 30 min starting approximately 6 0 min after the administration of the radiopharmaceutical. Sequential imaging was continued for 45 m in after the start of the Kinevac infusion. COMPARISON: CT February 14, 2024 FINDINGS: There is prompt, uniform accumulation of the tracer by the liver. There is normal filling of the int rahepatic ducts, common bile duct and gallbladder and normal excretion of the tracer into the duodenu m. There is normal contraction of the gallbladder. The calculated gallbladder ejection fraction is 80% (normal >40%). There is no significant enterogastric reflux. IMPRESSION: 1. Normal contractile response of the gallbladder to Kinevac infusion. 2. Normal biliary imaging study. ACT 112: Negative or not required by law. The above report was generated using voice recognition software. It may contain grammatical, syntax o r spelling errors. Electronically signed by: Fuentes Tsang M.D. 02/17/2024 1:14 PM
--- NOTE | 2024-02-17 13:43 | Discharge Summary ---
Date of Service February 17, 2024 Admission HPI Per Admitting Provider The patient is a 23-year-old female with no significant past medical history, who presents to the emergency department as noted above. She had repeat liver test performed in the emergency department, which showed progression of liver test abnormalities, it was then referred for evaluation for admission to the hospital. Principal Diagnosis Transaminitis Discharge Exam General: patient resting comfortably, NAD, non-toxic in appearance, answers questions appropriately. Skin: warm, dry, intact HEENT: NC/AT, anicteric sclera, conjunctiva without injection, moist mucus membranes. Heart: +S1/S2, regular, no m/r/g Lungs: equal air entry bilaterally, no rales/rhonchi/wheezes Abd: +BS, soft, NT/ND Ext: warm, no clubbing/cyanosis or edema, Chapis's neg. Neuro: nonfocal, speech intact, no facial droop, moving all extremities. Discharge Data Allergies Allergy/AdvReac Type Severity Reaction Status Date / Time No Known Allergies Allergy Verified 02/13/24 14:21 Consultations 02/14/24 19:39 ED Decision to Admit Stat 02/14/24 19:41 ED Decision to Admit Stat 02/14/24 21:09 Consult Gastroenterology Routine Ordered Studies 02/14/24 17:07 CT abd pelvis IV con only Stat 02/14/24 23:57 US abdomen limited Routine Laboratory Results WBC 4.94 K/ul (4.8-10.8) 02/17/24 05:33 RBC 4.20 M/uL (4.20-5.40) 02/17/24 05:33 Hgb 13.1 g/dl (12.0-16.0) 02/17/24 05:33 Hct 38.4 % (37.0-47.0) 02/17/24 05:33 MCV 91.4 fL (80.0-100.0) 02/17/24 05:33 MCH 31.2 pg (25.0-34.0) 02/17/24 05:33 MCHC 34.1 g/dL (32.0-36.0) 02/17/24 05:33 RDW Std Deviation 39.9 fL (36.4-46.3) 02/17/24 05:33 RDW Coeff of Albina 11.9 % (11.5-14.5) 02/17/24 05:33 Plt Count 241 K/uL (130-400) 02/17/24 05:33 MPV 10.0 fL (9.4-12.4) 02/17/24 05:33 Immature Gran % (Auto) 0.2 % 02/17/24 05:33 Neut % (Auto) 47.2 % 02/17/24 05:33 Lymph % (Auto) 40.9 % 02/17/24 05:33 [place] % (Auto) 8.9 % 02/17/24 05:33 Eos % (Auto) 2.6 % 02/17/24 05:33 Baso % (Auto) 0.2 % 02/17/24 05:33 Neut # (Auto) 2.33 K/uL (1.40-6.50) 02/17/24 05:33 Lymph # (Auto) 2.02 K/uL (1.20-3.40) 02/17/24 05:33 [place] # (Auto) 0.44 K/uL (0.11-0.59) 02/17/24 05:33 Eos # (Auto) 0.13 K/uL (0.00-0.50) 02/17/24 05:33 Baso # (Auto) 0.01 K/uL (0.00-0.20) 02/17/24 05:33 Immature Gran # (Auto) 0.01 K/uL (0.01-0.20) 02/17/24 05:33 PT 11.4 Seconds (9.0-12.0) 02/17/24 05:33 INR 1.1 (0.9-1.1) 02/17/24 05:33 APTT 28 Seconds (21-31) 02/17/24 05:33 PTT Ratio 1.0 02/17/24 05:33 Sodium 137 mmol/L (136-145) 02/17/24 05:33 Potassium 4.0 mmol/L (3.5-5.1) 02/17/24 05:33 Chloride 102 mmol/L (98-107) 02/17/24 05:33 Carbon Dioxide 26 mmol/L (21-32) 02/17/24 05:33 Anion Gap 9 (3-11) 02/17/24 05:33 BUN 13 mg/dl (6-23) 02/17/24 05:33 Creatinine 0.71 mg/dl (0.6-1.2) 02/17/24 05:33 Est Cr Clr Drug Dosing 110.9 ml/min 02/17/24 05:33 eGFR 122.45 02/17/24 05:33 BUN/Creatinine Ratio 18.3 (10-20) 02/17/24 05:33 Glucose 90 mg/dl (70-99(Fasting)) 02/17/24 05:33 Calcium 9.5 mg/dl (8.6-10.3) 02/17/24 05:33 Magnesium 1.9 mg/dl (1.7-2.4) 02/17/24 05:33 Total Bilirubin 2.3 mg/dl (0.2-1.0) H 02/17/24 05:33 Direct Bilirubin 0.4 mg/dl (0-0.2) H 02/17/24 05:33 AST 107 U/L (13-39) H 02/17/24 05:33 ALT 441 U/L (7-52) H 02/17/24 05:33 Alkaline Phosphatase 89 U/L (34-104) 02/17/24 05:33 Total Protein 7.3 gm/dl (6.0-8.3) 02/17/24 05:33 Albumin 4.4 gm/dl (3.4-5.0) 02/17/24 05:33 Globulin 2.9 gm/dl (2.5-4.0) 02/17/24 05:33 Albumin/Globulin Ratio 1.5 (0.9-2) 02/17/24 05:33 Lipase 53 U/L (11-82) 02/14/24 16:59 HCG, Qual Negative (Negative) 02/14/24 16:59 Urine Color Yellow 02/14/24 16:59 Urine Appearance Clear (Clear) 02/14/24 16:59 Urine pH 7.0 (4.5-7.5) 02/14/24 16:59 Ur Specific [place] 1.021 (1.000-1.030) 02/14/24 16:59 Urine Protein Negative (Negative) 02/14/24 16:59 Urine Glucose (UA) Negative (Negative) 02/14/24 16:59 Urine Ketones Negative (Negative) 02/14/24 16:59 Urine Blood Trace (Negative) H 02/14/24 16:59 Urine Nitrite Negative (Negative) 02/14/24 16:59 Urine Bilirubin Negative (Negative) 02/14/24 16:59 Urine Urobilinogen Negative (Negative) 02/14/24 16:59 Ur Leukocyte Esterase 1+ (Negative) H 02/14/24 16:59 Urine WBC (Auto) 0-5 /hpf (0-5) 02/14/24 16:59 Urine RBC (Auto) 3-5 /hpf (0-2) H 02/14/24 16:59 U Hyaline Cast (Auto) 0-2 /lpf (0-2) 02/14/24 16:59 U Epithel Cells (Auto) 3-5 /hpf (0-2) H 02/14/24 16:59 Urine Bacteria (Auto) 1+ (None Seen) H 02/14/24 16:59 Urine Opiates Screen Neg (Neg) 02/14/24 16:59 Ur Methadone, Qual Neg (Neg) 02/14/24 16:59 Urine Fentanyl Screen Neg (Neg) 02/14/24 16:59 Acetaminophen < 3 ug/ml (10-30) L 02/14/24 20:12 Urine Barbiturates Neg (Neg) 02/14/24 16:59 Ur Phencyclidine (PCP) Neg (Neg) 02/14/24 16:59 U Amphetamin/Meth Scrn Neg (Neg) 02/14/24 16:59 MDMA (Ecstasy) Screen Neg (Neg) 02/14/24 16:59 U Benzodiazepines Scrn Neg (Neg) 02/14/24 16:59 Ur Cocaine Metabolite Neg (Neg) 02/14/24 16:59 U Marijuana (THC) Screen Neg (Neg) 02/14/24 16:59 Ethyl Alcohol mg/dL < 10.0 mg/dl (<10.0) 02/14/24 20:12 Anaplasma Smear See Comment 02/14/24 16:59 Babesia Smear See Comment 02/14/24 16:59 Lyme Disease Screen Negative (Negative) 02/14/24 16:59 Hep Bs Antigen Negative (Negative) 02/14/24 16:59 Hepatitis C Antibody Negative (Negative) 02/14/24 16:59 Monoscreen Negative (Negative) 02/14/24 16:59 HIV 1&2 Ab/P24 Ag 4thGn Negative (Negative) 02/15/24 14:39 Impressions Abdomen/Pelvis CT 02/14/24 17:07 EXAM: CT Abdomen and Pelvis With Intravenous Contrast INDICATION: Abdominal pain. Jaundice. Elevated liver functions. TECHNIQUE: Axial computed tomography images of the abdomen and pelvis with intravenous contrast. Sagittal and coronal reformatted images were created and reviewed. This CT exam was performed using one or more of the following dose reduction techniques: automated exposure control, adjustment of the mA and/or kV according to patient size, and/or use of iterative reconstruction technique. CONTRAST: 94ml of Optiray 320 was administered intravenously. COMPARISON: No relevant prior studies available. FINDINGS: Limitations: None. Lung bases: No abnormality noted. Pleural space: No visualized pleural effusion or pneumothorax. Heart: No abnormality noted. Mediastinum: No abnormality noted. ABDOMEN: Liver: No abnormality noted. Gallbladder and bile ducts: The gallbladder is collapsed and contains multiple stones. No biliary gas. No ductal dilatation or visible stone. Pancreas: Homogeneous enhancement. No mass, inflammation or ductal dilation. Spleen: No significant abnormality noted. Adrenals: No significant abnormality noted. Kidneys and ureters: Normal enhancement. No mass, hydronephrosis or visualized stone. Stomach and bowel: No distension or mucosal thickening. No inflammation noted. PELVIS: Appendix: Well seen and appears normal. Bladder: No filling defects to suggest mass or large stone. No inflammation. Reproductive: No abnormalities noted. ABDOMEN and PELVIS: Intraperitoneal space: No free air. No significant fluid collection. Bones/joints: No acute changes. Soft tissues: No significant abnormality noted. Vasculature: No abdominal aortic aneurysm. Lymph nodes: No pathologically enlarged lymph nodes. Tubes, lines and devices: Intrauterine contraceptive device in good position. IMPRESSION: Cholelithiasis. No ductal dilatation. ACT 112: Positive. There are findings on this exam that require communication between the performing entity and the patient following Patient Test Result Information Act ([place] ACT 112) guidelines. Electronically signed by Dilma Rincon 02-14-2024 6:24 PM Hepatobiliary Scan Nuclear Medicine 02/16/24 10:00 NM hepatobiliary EF CLINICAL HISTORY: 23 years-old Female with Abdominal pain and abnormal LFTs. GS on CT. TECHNIQUE: Following the intravenous administration of 5.4 mCi of technetium- 99m Choletec, sequential abdominal images were obtained. In order to evaluate the contractile response of the gallbladder, 1.3 mcg of Kinevac was administered by slow intravenous infusion over 30 min starting approximately 60 min after the administration of the radiopharmaceutical. Sequential imaging was continued for 45 min after the start of the Kinevac infusion. COMPARISON: CT February 14, 2024 FINDINGS: There is prompt, uniform accumulation of the tracer by the liver. There is normal filling of the intrahepatic ducts, common bile duct and gallbladder and normal excretion of the tracer into the duodenum. There is normal contraction of the gallbladder. The calculated gallbladder ejection fraction is 80% (normal >40%). There is no significant enterogastric reflux. IMPRESSION: 1. Normal contractile response of the gallbladder to Kinevac infusion. 2. Normal biliary imaging study. ACT 112: Negative or not required by law. The above report was generated using voice recognition software. It may contain grammatical, syntax or spelling errors. Electronically signed by: Fuentes Tsang M.D. 02/17/2024 1:14 PM Hospital Course (1) Transaminitis: (2) Abdominal pain: (3) Nausea & vomiting: (4) Gastritis: Plan Transaminitis, abdominal pain, nausea, vomiting, Gastritis - LFTs: downtrending - Today pain improved 0-1/10, no nausea/vomiting - hep/hiv negative - CT AP: normal liver, collapsed gallbladder with stones - HIDA scan wnl - Abnormal UA, culture returned wnl - Patient condition resembles a gastritis rather than biliary colic, d/c and trial PPI therapy and assess Total Time Total Time Spent Total Time Spent (In Minutes): <30 Discharge Plan Discharge Items Patient Disposition: Home - Self-Care Reason For Visit: WORSENING ABNORMAL LFT's Discharge Diagnosis: GI upset w/ associated transaminitis Condition on Discharge: Good Activity: Per Instructions section Non-emergency contact: Primary Care Provider Call non-emergency contact if: your symptoms worsen and your pain is not controlled Follow-up/Referrals: Krysten Fletcher, LEONID, DEPOT MANAGER-BC [Primary Care Provider] - Diet: Regular Addtl Attending Provider Instructions: You were admitted to the hospital for abdominal pain, nausea, and vomiting with increased liver enzyme levels. You were treated with IV fluids and bowel rest. In the hospital a CT abdomen pelvis showed that your gallbladder was contracted with stones, a condition called cholelithiasis. It was thought that your chronic intermittent pain over the last 10 months or so has been related to the gallbladder squeezing to empty bile, and contraction against the stones can cause a condition called biliary colic associated with a few hours of abdominal pain, and sometimes nausea and vomiting, worsened when consuming fatty, greasy foods. However, due to the negative HIDA scan and your epigastric pain, it is more likely that your pain is associated with gastritis. This condition often can occur from increased stress, NSAID use or infection. In the more acute setting it is likely that your elevated liver enzymes were due to a recent viral infection that occurred last week combined with your history of Gilbert syndrome causing a transient increase. As we monitored you throughout your hospital stay, these enzymes quickly began to resolve, and your pain improved. While you were here a full panel of hepatic viruses and illnesses were tested for and discussed and all have returned negative. We plan to start you on a Proton Pump Inhibitor therapy or a PPI to help reduce acid secretion in your stomach and watch how your progress with this therapy closely to see if anymore symptoms arise. Close follow-up with your PCP and birthing nurse is recommended in the next few weeks to confirm this condition and recheck your symptoms. A discharge summary will be sent to your primary care physician to ensure continuity of care. Please bring this discharge summary with you to your next office appointment so that your provider can review it at that time. Follow-up appointments: Make a follow-up appointment with your PCP within the next week. It is very important that you follow up with them shortly after discharge from the hospital. A follow-up appointment with a birthing nurse is also recommended after your hospital stay in order to confirm resolution of your symptoms or for further work-up if your symptoms were to begin again. Medications: Your medication list has been reviewed and reconciled upon discharge to ensure accuracy and continuity of care. An updated list of all your medications is included with your hospital discharge paperwork. Please review this list closely, and make note of any changes. Please take Pantoprazole (Protonix) 40mg twice daily for the next 30 days. A prescription for this medication has been sent to your pharmacy. If you have any issues filling these prescriptions, please call [phone] and ask to leave a message for Dr. Bridger Lou. Take your medications as instructed; do not skip a dose of your medicines. Make sure all of your doctors know every medicine you are taking (including over-the- counter medicines, vitamins, and supplements). Call your primary care provider before taking any new medicines (including [id number] medicines, vitamins, and supplements), because some of these may interact with your current medications, or may make your symptoms worse. Tell your primary care provider if you cannot afford your medications. CONTACT YOUR PRIMARY CARE PROVIDER if you experience any of the following: Difficulty following your treatment plan, or difficulty taking medications CALL 911 OR GO TO THE EMERGENCY DEPARTMENT if you experience any of the following: Sudden, severe abdominal pain or nausea/vomiting Severe chest pain, or chest pain that radiates (moves) to your jaw or arm Sudden, severe shortness of breath or difficulty breathing Thank you for allowing us to participate in your care. Pending Studies at Discharge: No Stand-Alone Forms: My [employer] Work/School Release, Smoking Cessation Medications and DC Order Prescriptions: New pantoprazole [Protonix] 40 mg tablet,delayed release (DR/EC) 40 mg PO BID 30 Days Qty: 60 0RF Rx Instructions: Please take Pantoprazole (Protonix) 40mg twice a day for the next 30 days. If symptoms worsen from this medication, or new symptoms arise please stop taking and follow-up with your pcp for medication adjustment. Continued Mirena 21 mcg/24hr (up to 8 yrs) 52 mg intrauterine device intrauterine Discharge Orders: Discharge Order (Routine); Ordered 02/17/24 Ordered By: Bridger Palencia/Other Patient Handouts: Tests for Liver Disease, What Are Gallstones Admission Data Admit Date/Time: 02/16/24 19:11 Attending Provider: Wily Madera Admit Provider: Wily Madera Primary Care Provider: Krysten Fletcher Other Providers: Sudhakar Gonzalze; Axel Huggins Other Interventions: Discharge Summary Assessment (RN) Last Done: 02/17/24 15:25 Supervising Physician Co-Signing Physician Notes I personally examined the patient and verified all daniels points of history and exam, discussed case, and agree with decision making with Dr Lou feeling better feels up to going home. discussed HIDA and next steps/plans for empiric treatment vitals noted nad heent nc at mmm breathing unlabored no accessory muscles. no focal neuro deficits. no pallor or icterus abdominal pain - suspect acute viral, superimposed on chronic (most likely) gastritis (vs less likely biliary - especially given reassuring HIDA). acute v iral transaminitis starting to improve. safe for home - empiric acid suppression w BID PPI and close follow up - if chronic sx resolve - no further w/u or management may be needed after weaning PPI; if not improving then may need to consider EGD and/or revisiting the (now less likely but not definitively ruled out) possibility of biliary pathology. should be seeing doc ~q2wks until situation declares itself definitively or resolves- PCP and GI to f/u locally here otherwise as above Resident Activity Tracking Resident Involvement: Resident Care Provided Care Provided: Adult Hospital Medicine
[2024-02-17 14:52] VITALS: BP 103/71; TEMP 98.4; O2SAT 99
--- NOTE | 2024-02-17 17:26 | Billing Data ---
Date of Service February 17, 2024 Coding Level of Care Code 43762 IN/OBS DISCH 30 MIN/LESS
[2024-02-18 13:32] LABS: CMV IgG Antibody <0.60 U/mL; CMV IgM Antibody <30.00 AU/mL; Hepatitis A Antibody IgM NON-REACTIVE (NON-REACTIVE); Hepatitis B Core Antibody IgM NON-REACTIVE (NON-REACTIVE)
[2024-02-19 07:17] LABS: Babesia microti DNA Not Detected (Not Detected)
--- NOTE | 2024-02-20 13:34 | Ultrasound Report ---
EXAM: US abdomen limited CLINICAL HISTORY: abn LFT''s. PANC: difficult vis due to bowel. LIVER: 14.2 cm. GB: wall = 2.7 mm, multiple mobile appearing stones seen within. Negative Wynn''s. CBD: 3 mm. RK: 10.4 cm, no hydro. TECHNIQUE: Ultrasound examination of the RUQ was performed using a high-frequency transducer. Scanning was performed with the patient in supine position. COMPARISON: Previous CT dated 02/14/2024. FINDINGS: Liver: Liver size: Measuring 14.2 cm. Liver appears normal in size with increased parenchymal echotexture related to mild hepatic steatosis. No evidence of focal lesions, cysts, or masses. Hepatic vasculature appears normal. Gallbladder: Gallbladder size: Gallbladder is visualized and appears normal in size and shape. Multiple stones are seen in the GB, already seen in previos CT. No wall thickening (2.7 mm) or pericholecystic fluid noted. No evidence of gallbladder wall edema or signs of acute cholecystitis. Biliary Tree: Common bile duct diameter: Measuring 3 mm. Common bile duct is within normal limits in caliber and not dilated. No evidence of choledocholithiasis or biliary obstruction. Right Kidney: Right kidney size: Measuring 10.4 x 4.6 x 4.6 cm. Right kidney appears normal in size with preserved corticomedullary differentiation. No evidence of hydronephrosis, renal cysts, or masses. Pancreas: Body and tail are preserved. The rest of the pancreas was difficult to evaluate due to bowel gas. IMPRESSION: 1. Fatty liver. 2. Mutiple gallstones are seen. MTDD
== END 2024-02-17 16:28 | disposition home or self-care (01) | DRG 392 ==
LOC: 3E 16:39 → ED 16:39 → SUATTDRO 20:09 → 3E 20:38